=== PATIENT | male | born 1945 | race Caucasian/White ===

== ENCOUNTER 2020-11-28 09:11 | Outpatient (NON) | payer MEDICARE, SELFPAY ==
[2020-11-28 23:32] LABS: SARS-CoV-2 RNA PCR Positive
== END 2020-11-28 09:12 ==
PROVIDERS: PCP Family Medicine; Visit Provider Physician Assistant Medical
DX: U07.1 COVID-19 (principal); R07.89 Other chest pain; R05 Cough; J02.9 Acute pharyngitis, unspecified
CPT/HCPCS: C9803; U0003

== ENCOUNTER 2020-12-03 13:30 | Outpatient (RCR) | payer MEDICARE, SELFPAY ==
[2020-12-03] MEDS: ACETAMINOPHEN 325 MG TABLET 650 MG PO (13:26)
[2020-12-03] MEDS: FAMOTIDINE 20 MG TABLET PO (13:27)
[2020-12-03] MEDS: diphenhydrAMINE HCl CAP 25 MG CAPSULE PO (13:27)
[2020-12-03 13:42] VITALS: BP 140/77; PULSE 83; RESP 18; TEMP 36.3; O2SAT 99
--- NOTE | 2020-12-03 13:56 | PC.NURSE ---
Patient received Fact sheet and Covid discharge instructions.
[2020-12-03 15:27] VITALS: BP 137/81; PULSE 73; RESP 18; O2SAT 97
--- NOTE | 2020-12-04 16:00 | PC.NURSE ---
Patient states he is feeling much better today after his infusion of Bamlanivimab.
== END 2020-12-10 14:26 ==
LOC: AMCINF 13:30
PROVIDERS: PCP Family Medicine; Visit Provider Family Medicine
DX: Z23 Encounter for immunization (principal); U07.1 COVID-19; I10 Essential (primary) hypertension; Z68.33 Body mass index [BMI] 33.0-33.9, adult
CPT/HCPCS: A9270; J7050; M0239; Q0239

== ENCOUNTER 2021-03-04 17:53 | Emergency (ER) | payer MEDICARE, SELFPAY ==
[2021-03-04 18:04] VITALS: BP 138/74; PULSE 76; RESP 16; TEMP 36.6; O2SAT 96
--- NOTE | 2021-03-04 19:42 | ED.UPPEXIN ---
HPI - Extremity Injury (Upper) General Chief Complaint: Extremity Injury, Upper Stated Complaint: Finger Wound Time Seen by Provider: 03/04/21 18:31 Source: patient Mode of arrival: ambulatory Limitations: no limitations History of Present Illness HPI narrative: This is a 75 year old male that presents to the ER for a laceration to the left 2nd finger sustained just prior to arrival. Reports he cut it on a metal piece of machinery. He is up to date on tetanus. Denies decreased ROM or numbness. Related Data Home Medications Medication Instructions Recorded Confirmed omega-3 fatty acids 1,000 mg 1,000 mg PO DAILY 10/24/19 12/03/20 capsule Allergies Allergy/AdvReac Type Severity Reaction Status Date / Time amoxicillin AdvReac Intermediate Nausea Verified 03/04/21 18:13 codeine AdvReac Unknown Nausea Verified 03/04/21 18:13 dextromethorphan AdvReac Unknown Nausea Verified 03/04/21 18:13 [Robafen DM Cough-Chest Congest] guaifenesin AdvReac Unknown Nausea Verified 03/04/21 18:13 pseudoephedrine AdvReac Unknown Nausea Verified 03/04/21 18:13 [Virtussin DAC] Review of Systems Review of Systems: Narrative: CONSTITUTIONAL: Denies fever SKIN: Reports laceration MUSCULOSKELETAL: Denies joint pain, or myalgia. NEUROLOGIC: Denies numbness All systems reviewed & are unremarkable except as noted in HPI and below PMFSH Past Medical History Medical History (Updated 03/04/21 @ 21:10 by Lisette Thomson PA-C) Broken arm Broken wrist (~2008) Broken wrist (~2007) COVID-19 Deviated septum Diverticulosis Encounter for screening colonoscopy (~2001) Obesity Sacroiliac joint dysfunction of right side Shoulder separation Varicose veins of both lower extremities Surgical History Surgical History H/O arthroscopy of left knee Family History Family History Sibling Patient's sister is Family history of Parkinson's disease Family history of lung cancer Other Hypertension Social History Social History Smoking status: Never smoker Alcohol intake: current Drinks per week: 2 Gender identity (if verbalized by the patient): Male Spiritual care concerns: No Exam Narrative: Exam Narrative: GENERAL: Well-appearing, well-nourished, and in no acute distress. HEAD: Normocephalic, atraumatic. EYES: EOMI. EXTREMITIES: Normal range of motion. No edema or deformity. Left second finger distal phalanx with 1.5cm flap laceration on the dorsal surface SKIN: Warm, dry, no rash. NEURO: No focal deficits. Alert and oriented x3. PSYCH: Normal mood and affect Course Vital Signs Vital signs: Vital Signs Temperature 97.9 F 03/04/21 18:04 Pulse Rate 76 03/04/21 18:04 Respiratory Rate 16 03/04/21 18:04 Blood Pressure 138/74 03/04/21 18:04 Pulse Oximetry 96 03/04/21 18:04 Temperature 97.9 F 03/04/21 18:04 Pulse Rate 76 03/04/21 18:04 Respiratory Rate 16 03/04/21 18:04 Blood Pressure 138/74 03/04/21 18:04 Pulse Oximetry 96 03/04/21 18:04 Procedures Laceration Laceration 1: Date: 03/04/21 Time: 21:08 Site: hand Side (If applicable): left Size (cm): 1.5 Description: flap Depth: simple, single layer Local Anesthetic: lidocaine 1% Amount of anesthesia used (mL): 4 Pre-repair: irrigated ====== Skin Level ====== Skin layer closed with: nylon Size (cm): 4-0 Number of sutures: 3 Technique: simple, interrupted ====== Subcutaneous Layer ====== ====== Muscle Layer ====== ====== Tendon Layer ====== MDM - Extremity Injury (Upper) MDM Narrative Medical decision making narrative: Patient presents the emergency department for laceration to the left second finger sustained just prior
[2021-03-04 21:38] VITALS: BP 132/83; PULSE 64; RESP 14; O2SAT 98
== END 2021-03-04 21:20 | disposition home or self-care (01) ==
PROVIDERS: Emergency Provider Emergency Medicine; PCP Family Medicine
DX: S61.211A Laceration without foreign body of left index finger without damage to nail, initial encounter (principal); Z86.16 Personal history of COVID-19; E66.9 Obesity, unspecified; Z68.29 Body mass index [BMI] 29.0-29.9, adult; W31.9XXA Contact with unspecified machinery, initial encounter
CPT/HCPCS: 12001; 99282

== ENCOUNTER → 2021-07-12 02:30 | Outpatient (CLI) | payer MEDICARE, SELFPAY ==
[2021-07-12 20:12] LABS: SARS-CoV-2 RNA PCR Negative
== END ==
PROVIDERS: PCP Family Medicine; Visit Provider Family Medicine
DX: R05 Cough (principal); R09.81 Nasal congestion; R11.0 Nausea; Z20.822 Contact with and (suspected) exposure to COVID-19
CPT/HCPCS: C9803; U0003; U0005

== ENCOUNTER 2021-08-19 09:45 | Outpatient (CLI) | payer MEDICARE, SELFPAY ==
--- NOTE | 2021-08-19 11:00 | ECG_ITS ---
Measurements Intervals [place] Rate: 73 P: 24 IA: 195 QRS: -10 QRSD: 101 T: 26 QT: 368 QTc: 407 Interpretive Statements SINUS RHYTHM BASELINE ARTIFACT- I, II, III, AVR, AVF NORMAL ECG Electronically Signed On 08-19-2021 10:47:03 CDT by Shayan Cook D.O.
[2021-08-19 11:09] LABS: Anion Gap 5 mmol/L (8-16); Blood Urea Nitrogen 15 mg/dL (9-20); Calcium 10.1 mg/dL (8.4-10.2); Carbon Dioxide 32 mmol/L (22-30); Chloride 104 mmol/L (98-107); Estimated Glomerular Filt Rate > 60; Glucose 107 mg/dL (65-110); Sodium 141 mmol/L (137-145)
== END 2021-08-19 09:46 | disposition home or self-care (01) ==
LOC: ANHSURGERY 09:49
PROVIDERS: Anesthesiology; PCP Family Medicine; Visit Provider Orthopaedic Surgery
DX: Z01.818 Encounter for other preprocedural examination (principal); I10 Essential (primary) hypertension
CPT/HCPCS: 36415; 80048; 93005

== ENCOUNTER 2021-08-27 01:30 | Day surgery (SDC) | payer MEDICARE, SELFPAY ==
[2021-08-14 13:59] VITALS: BMI 28.8
[2021-08-27] VITALS (7 sets, daily range): BP systolic 131–150; BP diastolic 80–94; PULSE 66–82; RESP 14–16; TEMP 36.4; O2SAT 94–98; BMI 29.8
--- NOTE | 2021-08-27 08:27 | WPDANESEPPF ---
Anes - Initial Pre Proc Eval Procedure: Operation Date: 08/27/21 11:30 Proposed Procedures p Arthroscopic Removal of Loose Body Left Knee - Cody Martinez MD Date/Time: 08/27/21 08:27 Surgeon: Cody Martinez MD Pre Op Diagnosis: Loose body in the left knee Patient Data Age: 76 Gender: M Height: 1.82 m Weight: 95.3 kg Allergies Allergy/AdvReac Type Severity Reaction Status Date / Time amoxicillin AdvReac Intermediate Nausea Verified 08/19/21 10:37 codeine AdvReac Unknown Nausea Verified 08/19/21 10:37 dextromethorphan AdvReac Unknown Nausea Verified 08/19/21 10:37 [Robafen DM Cough-Chest Congest] guaifenesin AdvReac Unknown Nausea Verified 08/19/21 10:37 pseudoephedrine AdvReac Unknown Nausea Verified 08/19/21 10:37 [Virtussin DAC] Home Medications Medication Instructions Recorded Confirmed Type omega-3 fatty acids 1,000 mg 1,000 mg PO DAILY 10/24/19 08/19/21 History capsule allopurinol 300 mg tablet 300 mg PO DAILY #90 tablet 07/24/21 08/19/21 Rx amlodipine 10 mg tablet 10 mg PO DAILY #90 tablet 07/24/21 08/19/21 Rx fenofibrate 160 mg tablet 160 mg PO DAILY #90 tablet 07/24/21 08/19/21 Rx hydrochlorothiazide 12.5 mg capsule 12.5 mg PO DAILY #90 cap 07/24/21 08/19/21 Rx cholecalciferol (vitamin D3) 125 mcg PO DAILY 08/14/21 08/19/21 History melatonin 10 mg PO HS PRN 08/14/21 08/19/21 History multivitamin-iron (hematinic) 1 tablet PO DAILY 08/14/21 08/19/21 History [Complete Vitamin] zinc sulfate-vitamin C [Vitamin C 1 tablet PO HS 08/14/21 08/19/21 History with Zinc] Patient hx anesthesia problems: post op nausea/vomiting (just one time) Family hx anesthesia problems: none Results Review: All pre-operative results and documents have been reviewed as part of the pre-operative evaluation. [facility] Past Medical History Medical History (Updated 08/27/21 @ 08:28 by Carlos Hoyt DO) Broken arm Broken wrist (~2008) Broken wrist (~2007) COVID-19 Deviated septum Diverticulosis Encounter for screening colonoscopy (~2001) Essential (primary) hypertension History of gout Hyperlipidemia, unspecified Obesity DIANA (obstructive sleep apnea) PONV (postoperative nausea and vomiting) Sacroiliac joint dysfunction of right side Shoulder separation Varicose veins of both lower extremities Surgical History Surgical History H/O arthroscopy of left knee Family History Family History Sibling Patient's sister is Family history of Parkinson's disease Family history of lung cancer Other Hypertension Social History Social History Smoking status: Never smoker Alcohol intake: current Drinks per week: 2 Living arrangements: with family Gender identity (if verbalized by the patient): Male Spiritual care concerns: No Anes - Eval Final PreProcedure Day of Procedure 08/27/21 08:27 Patient weight: overweight Heart: regular rate and rhythm Lungs: clear to auscultation and normal air movement Airway: Mallampati scale class III Neurological: alert and oriented Last oral intake: >/= 8 hours ASA classification: III Emergent: no Anesthetic plan: proceed Anesthesia type and monitoring: general LMA and standard monitoring Results Review: All pre-operative results and documents have been reviewed as part of the pre-operative evaluation. Informed Consent: The patient's anesthetic plan and its attendant risks and benefits were discussed with the patient/family/POA. Questions were solicited and answers provided to the satisfaction of the patient/family/POA.
--- NOTE | 2021-08-27 10:10 | WPDHPUPDATE1 ---
History and Physical Update Update Date/Time: 08/27/21 10:10 History and Physical has been reviewed, including an updated exam of the patient. There are NO changes in the patient's condition. Risks, benefits, and alternatives have been discussed and questions answered. Patient agrees to proceed with procedure.
[2021-08-27] MEDS: KETOROLAC 15 MG/ML VIAL (*BKC) IV PUSH (10:22)
[2021-08-27] MEDS: ACETAMINOPHEN 500 MG TABLET 1000 MG PO (10:22)
[2021-08-27] MEDS: LACTATED RINGERS 1,000 ML 30 ML IV CONT ×2 (10:22→12:31)
--- NOTE | 2021-08-27 11:17 | WPDHPUPDATE1 ---
History and Physical Update Update Date/Time: 08/27/21 11:17 History and Physical has been reviewed, including an updated exam of the patient. There are NO changes in the patient's condition. Risks, benefits, and alternatives have been discussed and questions answered. Patient agrees to proceed with procedure.
[2021-08-27] MEDS: ceFAZolin 2 GM/D5W 50 ML 2 GM/50 ML BAG IVPB (11:22)
--- NOTE | 2021-08-27 13:49 | P.OP_ITS ---
Procedure Note - Detailed Date of Procedure 08/27/21 Pre-op Diagnosis Loose body in the left knee Post-op Diagnosis same Procedure Performed Arthroscopic loose body removal left knee; (2cm) Surgeon Cody Martinez MD [employer] Yesika Tejeda PA-C Anesthesia general Indications Symptomatic loose body. Findings Large pedunculated osteocartilaginous body at the medial gutter. Removed through a separate superomedial incision. Severe tricompartmental degenerative disease. Moderate synovitis. Bleeding from the portals and the soft tissue attachment of the loose body required coagulation. Description of Procedure The patient was identified and the surgical site confirmed and signed in the preoperative holding area. Antibiotics were started per protocol. The patient was brought to the operative room and transferred to the OR table. A general anesthetic was administered. Supine position with the operative lower extremity position in the leg lees after placement of a well padded tourniquet. The leg support was lowered and the contralateral limb was supported with a soft bolster. The knee was prepped and draped in the usual sterile fashion. A time- out was performed. The portal sites were marked and infiltrated with 0.5% Marcaine 20 mL. The limb was exsanguinated and the tourniquet inflated to 300 mL Hg. Standard inferolateral and inferomedial portals were established. Inflow was obtained with the saline pump. The camera was introduced. Diagnostic inspection of the joint was accomplished. The loose body was identified at the medial gutter. A separate incision was made superior medial. The loose body was captured in the basket device. A thin pedunculated tissue stalk was cut using a spinal needle. This was quite vascular, and later required coagulation. The arthroscopic instruments were removed. The tourniquet released and wounds closed with subcutaneous 3-0 Monocryl absorbable suture. Steri strips and a sterile dressing were applied. A light elastic wrap was placed. The patient was extubated and brought to the recovery room in stable condition. Estimated Blood Loss 20 Drains No Packing No Pathology none sent Complications No immediate complications Condition stable Disposition PACU
== END 2021-08-27 14:13 | disposition home or self-care (01) ==
PROVIDERS: PCP Family Medicine; Visit Provider Orthopaedic Surgery
PROC: (CPT 29870; principal; 2021-08-27 11:30)
DX: M23.42 Loose body in knee, left knee (principal); M65.862 Other synovitis and tenosynovitis, left lower leg; M17.12 Unilateral primary osteoarthritis, left knee; I10 Essential (primary) hypertension; E78.5 Hyperlipidemia, unspecified; G47.33 Obstructive sleep apnea (adult) (pediatric); M10.9 Gout, unspecified; Z86.16 Personal history of COVID-19
CPT/HCPCS: 29874; 36415; 80048; 93005; A9270; J0690; J1885; J2270; J7120

== ENCOUNTER 2022-11-08 13:36 | Emergency (ER) | payer MEDICARE, SELFPAY ==
--- NOTE | ~2022-11-08 | XR_ITS ---
EXAMINATION: XR ankle RT min 3V DATE: 11/08/2022 16:35 INDICATION: Right ankle swelling and heel pain post fall from ladder TECHNIQUE: Anteroposterior, oblique, mortise, and lateral views of the right ankle were obtained. COMPARISON: None. FINDINGS: There is flattening of Boehler's angle with comminuted joint depression type fracture of the right ca lcaneus with fracture lines appearing to involve both the subtalar joint as well as possibly the calc aneocuboid joint. Small amount of heterotopic ossification along the medial malleolus with overlying soft tissue swelling, likely sequela of old trauma soft tissue swelling about the lateral malleolus w ithout evident fracture. No ankle joint effusion. 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 IMPRESSION: 1. Comminuted joint depression type right calcaneal fracture with flattening of Boehler's angle. Reviewed, dictated and finalized at location A. [facility]
[2022-11-08 13:47] VITALS: BP 153/81; PULSE 87; RESP 16; TEMP 36.3; O2SAT 97
--- NOTE | 2022-11-08 16:26 | ED.FALL ---
HPI - Fall General Chief Complaint: Fall Stated Complaint: fell 4ft from ladder Time Seen by Provider: 11/08/22 16:16 History of Present Illness HPI Narrative: Patient is a 77-year-old male here for evaluation of right ankle pain after a fall today. Patient states that he was on the second step of a ladder when he was reaching for an object, he reached too far and began to fall off of the ladder. States that he landed directly on his right foot. Reports pain with ambulation but no pain at rest. No numbness or tingling, difficulty moving the foot. Has not taken any pain medicine prior to arrival. Related Data Home Medications Medication Instructions Recorded Confirmed omega-3 fatty acids 1,000 mg 1,000 mg PO DAILY 10/24/19 12/02/21 capsule (Fish Oil Concentrate) cholecalciferol (vitamin D3) 125 125 mcg PO DAILY 08/14/21 12/02/21 mcg (5,000 unit) tablet melatonin 10 mg tablet 10 mg PO HS PRN Insomnia 08/14/21 12/02/21 multivitamin-iron (hematinic) 1 tablet PO DAILY 08/14/21 12/02/21 zinc sulfate-vitamin C 200 mg-100 1 tablet PO HS 08/14/21 12/02/21 mg tablet Allergies Allergy/AdvReac Type Severity Reaction Status Date / Time amoxicillin AdvReac Intermediate Nausea Verified 11/08/22 16:14 codeine AdvReac Unknown Nausea Verified 11/08/22 16:14 dextromethorphan AdvReac Unknown Nausea Verified 11/08/22 16:14 [Robafen DM Cough-Chest Congest] guaifenesin AdvReac Unknown Nausea Verified 11/08/22 16:14 pseudoephedrine AdvReac Unknown Nausea Verified 11/08/22 16:14 [Virtussin DAC] Review of Systems Review of Systems: Gen.: Denies fevers or chills Eyes: Denies eye pain or visual change ENT: Denies congestion Respiratory: Denies shortness of breath or cough CV: Denies chest pain or palpitations GI: Denies abdominal pain nausea, emesis or diarrhea denies burning, urgency, frequency or hematuria Musculoskeletal: Reports right ankle pain. Neuro: Denies numbness, tingling, weakness or focal weakness Skin: Denies rash Except as documented, all other systems reviewed and negative PMFSH Past Medical History Medical History Broken arm Broken wrist (~2008) Broken wrist (~2007) COVID-19 Deviated septum Diverticulosis Encounter for screening colonoscopy (~2001) Essential (primary) hypertension History of gout Hyperlipidemia, unspecified Obesity DIANA (obstructive sleep apnea) PONV (postoperative nausea and vomiting) Sacroiliac joint dysfunction of right side Shoulder separation Varicose veins of both lower extremities Surgical History Surgical History H/O arthroscopy of left knee (~08/23/21) Arthroscopic Loose Body Removal Family History Family History Sibling Patient's sister is Family history of Parkinson's disease Family history of lung cancer Other Hypertension Social History Social History (Updated 12/02/21 @ 09:44 by ESPERANZA Lemus) Alcohol intake: current Drinks per week: 2 Gender identity (if verbalized by the patient): Male Spiritual care concerns: No Exam Narrative: APPEARANCE: Well appearing, no pain in distress, well-nourished. Head: Normocephalic and atraumatic. EYES: PERRLA/EOMI, conjunctivae clear NOSE: No nasal drainage EARS: External ear normal in appearance THROAT: Oropharynx is clear. Mucous membranes are moist. NECK: Supple. No adenopathy, no masses. RESPIRATORY: Airway patent, respirations nonlabored. Clear to auscultation bilaterally, no rales, rhonchi, wheezing. CARDIOVASCULAR: palpable dp/pt pulses. Regular rate and rhythm without murmurs, rubs, or gallops. ABDOMINAL: Normoactive bowel sounds. Soft, nontender, nondistended. No rebound tenderness or guarding. MUSCULOSKELETAL: swelling around lateral and medial malleolus, no tenderness to palpation.
[2022-11-08] MEDS: HYDROcodone/acetaminophen (*CRX) 5-325 MG TABLET 1 TAB PO (17:13)
== END 2022-11-08 18:49 | disposition home or self-care (01) ==
PROVIDERS: Emergency Provider Physician Assistant; PCP Family Medicine
DX: S92.001A Unspecified fracture of right calcaneus, initial encounter for closed fracture (principal); Z86.16 Personal history of COVID-19; I10 Essential (primary) hypertension; M10.9 Gout, unspecified; E78.5 Hyperlipidemia, unspecified; E66.9 Obesity, unspecified; Z68.31 Body mass index [BMI] 31.0-31.9, adult; G47.33 Obstructive sleep apnea (adult) (pediatric); W11.XXXA Fall on and from ladder, initial encounter
CPT/HCPCS: 29515; 73610; 99284; A9270

== ENCOUNTER 2023-02-25 14:55 | Outpatient (CLI) | payer MEDICARE, SELFPAY ==
[2023-02-25 18:41] LABS: Alanine Aminotransferase 28 U/L (6-50); Albumin Level 4.4 g/dL (3.5-5.1); Alkaline Phosphatase 75 U/L (38-126); Anion Gap 6 mmol/L (8-16); Aspartate Amino Transferase 40 U/L (17-59); Bilirubin,Total 0.7 mg/dL (0.2-1.3); Blood Urea Nitrogen 16 mg/dL (9-20); Calcium 10.1 mg/dL (8.4-10.2); Carbon Dioxide 30 mmol/L (22-30); Chloride 105 mmol/L (98-107); Estimated Glomerular Filt Rate > 60; Glucose 135 mg/dL (65-110); Potassium 3.5 mmol/L (3.4-5.0); Sodium 141 mmol/L (137-145)
[2023-02-25 18:42] LABS: Basophils Absolute Auto 0.1 K/mm3 (0.0-0.1); Basophils Percent Auto 0.9 % (0.2-1.2); Eosinophils Absolute Auto 0.5 K/mm3 (0-0.3); Eosinophils Percent Auto 5.2 % (0-4.4); Hematocrit 41.1 % (42.0-52.0); Hemoglobin 13.4 g/dL (14.0-18.0); Immature Granulocyte Absolute 0.08 K/mm3 (0.00-0.031); Immature Granulocyte Percent A 0.9 % (0-0.5); Lymphocytes Percent Auto 37.2 % (18.3-44.2); Mean Corpuscular HGB Conc 32.6 g/dl (32-36); Mean Corpuscular Hemoglobin 30.2 pg (26-34); Mean Corpuscular Volume 92.6 fl (80-100); Mean Platelet Volume 11.6 fl (7.4-10.4); Monocytes Absolute Auto 0.7 K/mm3 (0.1-0.6); Neutrophils Absolute Auto 4.1 K/mm3 (1.3-6.7); Neutrophils Percent Auto 47.8 % (45.5-73.1); Platelet Count Result 233 k/mm3 (150-375); Red Blood Count 4.44 M/mm3 (4.6-6.20); Red Cell Distribution Width 14.2 % (11.5-14.5); White Blood Count 8.6 K/mm3 (4.5-10.0)
== END 2023-02-25 14:56 | disposition home or self-care (01) ==
LOC: ANHGOSHLAB 14:56
PROVIDERS: PCP Family Medicine; Visit Provider Nurse Practitioner Family
DX: R31.9 Hematuria, unspecified (principal); E79.0 Hyperuricemia without signs of inflammatory arthritis and tophaceous disease
CPT/HCPCS: 36415; 80053; 85025; 87086

== ENCOUNTER 2023-02-25 19:09 | Outpatient (NON) | payer MEDICARE, SELFPAY | END 2023-02-25 19:10 | disposition home or self-care (01) | LOC: ANHLAB 19:10 | PROVIDERS: PCP Family Medicine; Visit Provider Family Medicine | DX: R31.9 Hematuria, unspecified (principal) | CPT/HCPCS: 36415; 80053; 85025; 87086 ==

== ENCOUNTER 2023-03-30 08:13 | Outpatient (CLI) | payer MEDICARE, SELFPAY ==
[2023-03-30 18:46] LABS: Anion Gap 9 mmol/L (8-16); Blood Urea Nitrogen 16 mg/dL (9-20); Calcium 9.2 mg/dL (8.4-10.2); Carbon Dioxide 29 mmol/L (22-30); Chloride 103 mmol/L (98-107); Estimated Glomerular Filt Rate > 60; Glucose 80 mg/dL (65-110); Potassium 3.6 mmol/L (3.4-5.0); Sodium 141 mmol/L (137-145)
== END 2023-03-30 08:14 | disposition home or self-care (01) ==
LOC: ANHGOSHLAB 08:15
PROVIDERS: Visit Provider Urology
DX: R31.0 Gross hematuria (principal)
CPT/HCPCS: 36415; 80048

== ENCOUNTER → 2023-03-31 08:01 | Outpatient (CLI) | payer MEDICARE, SELFPAY ==
--- NOTE | ~2023-03-31 | CT_ITS ---
CT of the Abdomen and Pelvis: Indication: Intermittent hematuria Technique: 2.5 mm axial scans were obtained through the abdomen and pelvis prior to and following in travenous administration of 130 cc of Omnipaque 350. Dose reduction technique was used on this scan b y utilizing automated exposure control and iterative reconstruction technique. The dose-length produc t (DLP) was 2162.02 mGy-cm. Findings: Scans through the lung bases are unremarkable. There is diffuse fatty infiltration of the liver. The spleen, pancreas, gallbladder, and adrenal glan ds are within normal limits. Small bilateral nonobstructing renal stones are present. No ureteral sto ne or hydronephrosis. Left upper pole renal cyst present. No evidence of aortic aneurysm. No lymphad enopathy. No bowel obstruction or bowel wall thickening. There is no evidence to suggest acute appendicitis. Images through the pelvis were performed. There is a 1.3 x 0.8 cm urinary bladder stone. Prostate gla nd is enlarged. Bilateral L5 pars interarticularis defects are present, with minimal grade 1 anteroli sthesis of L5 over S1. Impression: 1.3 x 0.8 cm urinary bladder stone. Small bilateral nonobstructing renal stones, measuring up to 2 mm. Diffuse fatty infiltration of the liver. Reviewed, dictated and finalized at location . Impression: 1.3 x 0.8 cm urinary bladder stone. Small bilateral nonobstructing renal stones, measuring up to 2 mm. Diffuse fatty infiltration of the liver.
[2023-03-31 08:51] LABS: Estimated Glomerular Filt Rate > 60
== END ==
PROVIDERS: PCP Family Medicine; Visit Provider Urology
DX: R31.0 Gross hematuria (principal); K76.0 Fatty (change of) liver, not elsewhere classified; N21.0 Calculus in bladder; N20.0 Calculus of kidney
CPT/HCPCS: 74178; Q9967

== ENCOUNTER 2023-05-29 10:04 | Outpatient (CLI) | payer MEDICARE, SELFPAY ==
[2023-05-29 11:35] LABS: Kit Draw Collected
== END 2023-05-29 10:05 | disposition home or self-care (01) ==
LOC: ANHGOSHLAB 10:05
PROVIDERS: PCP Family Medicine; Visit Provider Nurse Practitioner Family
DX: K92.1 Melena (principal)
CPT/HCPCS: 36415

== ENCOUNTER 2024-04-12 08:51 | Outpatient (CLI) | payer MEDICARE, SELFPAY ==
[2024-04-19 15:34] VITALS: BMI 31.1
--- NOTE | 2024-04-19 15:34 | WPDHOMESLEEP ---
Sleep Study - Home Unattended Date of Study: 04/12/24 Ordering Provider: Froylan Monteiro MD Interpreting Provider: Alejandra aSinz, DO Home Sleep Study Type: Watch PAT Height: 1.83 m Weight: 104.326 kg Body Mass Index: 31.1 Neck Circumference (inches): 17 [place]: 14 Reason for Sleep Study Daytime hypersomnia despite having Inspire device Sleep History The patient is a 78-year-old male with Hypertension, hyperlipidemia, gout and previously diagnosed sleep apnea that currently has the inspire device. He developed daytime hypersomnia and has an ESS of . the patient denies awakening from sleep short of breath. He denies awakening at night with heartburn, belching or cough. He rarely snores and is rarely loud enough that others complain. He rarely has trouble sleeping when he has a cold. He denies waking up gasping for air throughout the night. He denies having breathing problems at night observed by himself or others. He denies sweating excessively at night. He denies having heart palpitations or irregular heartbeats during the night. He occasionally falls asleep during the day and rarely falls asleep while driving. He denies sleep paralysis, cataplexy and hypnagogic / hypnopompic hallucinations. He denies having trouble at school or work due to sleepiness. He denies feeling afraid of going to sleep. He rarely has nightmares and rarely remembers his dreams. He denies having thoughts racing through his mind. He denies feeling sad, depressed or anxious. He denies having muscular tension. He denies noticing parts of his body jerk. He rarely kicks during the night. He denies having crawling and aching feelings in his legs and denies having leg pain during the night. He rarely grinds his teeth during sleep and denies awakening with morning jaw pain. He is rarely bothered by pain during the day and never awakened by pain during the night. He denies waking up feeling stiff in the morning. He denies waking up with sore or achy muscles. He rarely wakes up with pain in the neck, spine or other joints. He goes to bed between 10 30-11 p.m. on both weekdays and weekends. It takes him 5-10 minutes to fall asleep. He wakes up 1-3 times throughout the night to urinate and is able fall back asleep within 10 minutes. He wakes up at 6:30 a.m. on both weekdays and weekends. He typically gets 6-8 hours of sleep per night. He will stay in bed for 5-10 minutes after waking up in the morning. He currently lives with his . He denies consuming any caffeinated beverages within 2 hours of bedtime. He denies engaging in physical exercise before bedtime. He denies reading and watching television before falling asleep. He will take naps in the afternoon or the evening and they are most sleep refreshing. He consumes 2 cups of a caffeinated beverage per day. He consumes 1-2 alcoholic beverages per week. He denies tobacco and recreational drug use. [facility] Past Medical History Medical History Broken arm Broken wrist (~2008) Broken wrist (~2007) COVID-19 Deviated septum Diverticulosis Encounter for screening colonoscopy (~2001) Essential (primary) hypertension Fracture closed, calcaneus with ORIF 2022 History of gout Hyperlipidemia, unspecified Obesity DIANA (obstructive sleep apnea) PONV (postoperative nausea and vomiting) Sacroiliac joint dysfunction of right side Shoulder separation Varicose veins of both lower extremities Surgical History Surgical History H/O arthroscopy of left knee (~08/23/21) Arthroscopic Loose Body Removal Family History Family History Sibling Patient's sister is Family history of Parkinson's disease Family history of lung cancer Other Hypertension Social History Social History (Reviewed 04/19/24 @ 15:36 by
== END 2024-04-13 07:30 | disposition home or self-care (01) ==
LOC: ANHCSM 08:53
PROVIDERS: PCP Family Medicine; Visit Provider Family Medicine
DX: G47.33 Obstructive sleep apnea (adult) (pediatric) (principal); G47.31 Primary central sleep apnea; R53.83 Other fatigue; Z99.89 Dependence on other enabling machines and devices
CPT/HCPCS: 95800

== ENCOUNTER 2024-12-15 00:52 | Day surgery (SDC) | payer MEDICARE, SELFPAY ==
[2024-12-15 10:38] VITALS: BP 149/86; PULSE 72; RESP 20; TEMP 36.4; O2SAT 98
[2024-12-15] MEDS: LACTATED RINGERS 1,000 ML 150 ML IV CONT (10:40)
--- NOTE | 2024-12-15 10:50 | PM.HPGS ---
History of Present Illness History of Present Illness Consent: Risks, benefits, and alternatives have been discussed and questions answered. Patient agrees to proceed with procedure. Chief complaint: Personal Hx of adenomatous,serrated colon polyps Narrative: Alton Villagran is a 79 year old male with colon polyp 2018, recent diagnosis of plasmacytoma and PET scan showed possible lesion in descending colon Review of Systems Review of Systems: All systems reviewed & are unremarkable except as noted in HPI and below PMFSH Past Medical History Medical History (Updated 12/15/24 @ 10:50 by Jalen Barreto MD) Adenomatous colon polyp Abnormal PET scan of colon History of throat cancer Fracture closed, calcaneus with ORIF 2022 PONV (postoperative nausea and vomiting) DIANA (obstructive sleep apnea) INSPIRE History of gout COVID-19 Obesity Sacroiliac joint dysfunction of right side Essential (primary) hypertension Hyperlipidemia, unspecified Diverticulosis Broken wrist (~2007) Broken wrist (~2008) Deviated septum Encounter for screening colonoscopy (~2001) Shoulder separation Varicose veins of both lower extremities Broken arm Surgical History Surgical History H/O arthroscopy of left knee (~08/23/21) Arthroscopic Loose Body Removal Family History Family History Sibling Patient's sister is Family history of Parkinson's disease Family history of lung cancer Other Hypertension Social History Social History (Updated 11/07/24 @ 10:36 by Amanda Younger MA) Smoking status: Never smoker Alcohol intake: current Drinks per week: 2 Substance use: never Substance use type: does not use Do You Feel Safe in your Home?: Yes Lack of Transportation: No Lack of Food: Never True Current Housing: I Have Housing Concerned About Future Housing: No Difficulty Paying Gas/Electric Bills: No Difficulty Paying for Meds: No Currently Unemployed: No Education: Master's Degree or Higher Difficulty w/ Childcare or Family Care: No Living arrangements: with family Gender identity (if verbalized by the patient): Male Spiritual care concerns: No Meds Home Medications and Allergies Home Medications ?Medication ?Instructions ?Recorded ?Confirmed ?Type omega-3 fatty acids 1,000 mg 1,000 mg PO DAILY 10/24/19 12/15/24 History capsule (Fish Oil Concentrate) ascorbic acid 100 mg-zinc sulfate 1 tablet PO HS 08/14/21 12/15/24 History 200 mg tablet cholecalciferol (vitamin D3) 125 125 mcg PO DAILY 08/14/21 12/15/24 History mcg (5,000 unit) tablet multivitamin-iron (hematinic) 1 tablet PO DAILY 08/14/21 12/15/24 History antiarthritic combination no.2 900 mg PO 05/05/24 11/07/24 History mg tablet (glucosamine-chondroitin) amlodipine 10 mg tablet (Norvasc) 10 mg PO DAILY #90 tabs 09/27/24 12/15/24 Rx hydrochlorothiazide 12.5 mg capsule 12.5 mg PO DAILY #90 caps 11/24/24 12/15/24 Rx allopurinol 300 mg tablet 300 mg PO DAILY #90 tabs 12/07/24 12/15/24 Rx fenofibrate 160 mg tablet 160 mg PO DAILY #90 tabs 12/07/24 12/15/24 Rx Allergies Allergy/AdvReac Type Severity Reaction Status Date / Time amoxicillin AdvReac Intermediate Nausea Verified 12/15/24 10:35 Vital Signs Vital Signs - 24 hr 12/15/24 10:38 Temperature 97.5 F L Pulse Rate 72 Respiratory Rate 20 Blood Pressure 149/86 H Pulse Oximetry 98 Oxygen Delivery Room Air Exam Const: General: comfortable and no acute distress HENMT: Face/Nose/Sinus: Normal nares present Eyes: General: appearance normal, both eyes and all related structures Neck: Neck: no JVD Resp: Auscultation: clear to auscultation bilaterally Cardio: Rate: regular rate Rhythm: regular rhythm GI: Inspection: non-distended GI Palp: Yes Soft to palpation Skin: General skin exam: normal color Neuro: Speech: normal speech Extrem: General: normal to inspection Psych: Mental Status: mental status grossly normal Assessment and Plan Assessment and plan (1) Abnormal PET scan of colon: Code(s): R94.8 - Abnormal results of function studies of other organs and systems Status: Acute Assessment and Plan: colonoscopy (2) Adenomatous colon polyp: Code(s): D12.6 - Benign neoplasm of colon, unspecified Status: Acute
[2024-12-15 11:15] VITALS: BP 133/75; PULSE 73; RESP 18; O2SAT 98
[2024-12-15 11:24] VITALS: BP 137/66; PULSE 74; RESP 22; O2SAT 96
[2024-12-15 11:35] VITALS: BP 144/81; PULSE 69; RESP 19; O2SAT 97
== END 2024-12-15 11:45 | disposition home or self-care (01) ==
PROVIDERS: PCP Family Medicine; Referring Provider Nurse Practitioner Family; Visit Provider Internal Medicine Gastroenterology
PROC: 0DJD8ZZ Inspection of Lower Intestinal Tract, Via Natural or Artificial Opening Endoscopic (ICD-10-PCS; CPT 45378; principal; 2024-12-15 11:30)
DX: D12.0 Benign neoplasm of cecum (principal); D12.2 Benign neoplasm of ascending colon; D12.3 Benign neoplasm of transverse colon; K63.5 Polyp of colon; K57.30 Diverticulosis of large intestine without perforation or abscess without bleeding
CPT/HCPCS: 45385; 88305; J2003; J2704; J7120